=== PATIENT | male | born 1990 | race Caucasian/White ===

== ENCOUNTER 2018-04-30 21:20 | Emergency (ER) | payer BC ==
[~2018-04-30] VITALS: Ht 193 cm; Wt 90.9 kg
[2018-04-30 21:28] VITALS: BP 148/86; TEMP 99.1
[2018-04-30] MEDS ORDERED: DOXYCYCLINE HY100 MG PO (22:14)
[2018-04-30 22:52] VITALS: PULSE 110
== END 2018-04-30 22:37 | disposition home or self-care (01) ==
LOC: COL.ER 21:20
DX: S81.811A Laceration without foreign body, right lower leg, initial encounter (principal); Y92.828 Other wilderness area as the place of occurrence of the external cause; W01.198A Fall on same level from slipping, tripping and stumbling with subsequent striking against other object, initial encounter